=== PATIENT | female | born 1955 | race Caucasian/White ===

== ENCOUNTER → 2017-11-23 11:46 | Outpatient (CLI) | payer OTHER, SELFPAY ==
[2017-11-23 13:05] LABS: T4 Total Thyroxine 7.56 ug/dL (5.5-11.0)
[2017-11-23 13:19] LABS: Thyroid Stimulating Hormone 1.18 uIU/mL (0.47-4.68)
== END ==
PROVIDERS: Family Provider Family Medicine; PCP Family Medicine; Visit Provider Family Medicine
DX: E03.9 Hypothyroidism, unspecified (principal)
CPT/HCPCS: 36415; 84436; 84443

== ENCOUNTER → 2018-03-15 08:22 | Outpatient (CLI) | payer OTHER, SELFPAY ==
[2018-03-15 10:21] LABS: Free T4, Direct Thyroxine 1.13 ng/dL (0.78-2.19)
[2018-03-15 10:35] LABS: Thyroid Stimulating Hormone < 0.02 uIU/mL (0.47-4.68)
== END ==
PROVIDERS: PCP Family Medicine; Visit Provider Family Medicine
DX: E03.9 Hypothyroidism, unspecified (principal)
CPT/HCPCS: 36415; 84439; 84443

== ENCOUNTER → 2018-04-17 10:06 | Outpatient (CLI) | payer OTHER, SELFPAY ==
--- NOTE | 2018-04-17 | DI.MG.S_ITS ---
BILATERAL DIGITAL SCREENING MAMMOGRAM 3D/2D WITH CAD: 04/17/2018 CLINICAL: Routine screening. Personal history of left breast cancer. Comparison is made to exams dated: 04/13/2017 mammogram, 04/07/2016 mammogram, and 04/05/2015 mammogram - [facility]. The tissue of both breasts is heterogeneously dense. This may lower the sensitivity of mammography. Current study was also evaluated with a Computer Aided Detection (CAD) system. There are benign post operative findings in the left breast. No significant masses, calcifications, or other findings are seen in either breast. There has been no significant interval change. IMPRESSION: There is no mammographic evidence of malignancy. A 1 year screening mammogram is recommended. NOTE: For mammograms, a report in lay terms will be sent to the patient. Approximately 15% of breast malignancies will not be visualized mammographically. In the management of a palpable breast mass, a negative mammogram must not discourage biopsy of a clinically suspicious lesion. Electronically Signed By: Kaitlynn mitchell/simon:04/17/2018 13:28:50 copy to: Vimal Graham letter sent: Normal Exam ACR BI-RADS Category 2: Benign Finding(s) 3342F
== END ==
PROVIDERS: Family Provider Internal Medicine Hematology & Oncology; PCP Student in an Organized Health Care Education/Training Program; Visit Provider Family Medicine
DX: Z12.31 Encounter for screening mammogram for malignant neoplasm of breast (principal); Z85.3 Personal history of malignant neoplasm of breast
CPT/HCPCS: 77063; 77067

== ENCOUNTER → 2018-07-30 11:25 | Outpatient (CLI) | payer OTHER, SELFPAY ==
[2018-07-30 12:30] LABS: BUN Creatinine Ratio 22.9 (6-22); Blood Urea Nitrogen 16 mg/dL (7-17); Calcium 9.2 mg/dL (8.4-10.2); Carbon Dioxide 25 mmol/L (22-32); Chloride 104 mmol/L (98-107); Cholesterol 160 mg/dL (140-199); Estimated Glomerular Filt Rate > 60.0 mL/min (>60); Glucose 106 mg/dL (80-110); HDL Cholesterol 65 mg/dL (40-60); HEMOLYSIS < 15 (0-50); LDL Cholesterol Calculated 65 mg/dL (<100); Sodium 138 mmol/L (137-145); Triglycerides 152 mg/dL (35-150)
[2018-07-30 13:23] LABS: Free T4, Direct Thyroxine 1.63 ng/dL (0.78-2.19)
[2018-07-30 13:36] LABS: Thyroid Stimulating Hormone 0.03 uIU/mL (0.47-4.68)
[2018-07-30 15:59] LABS: Vitamin D 25 Hydroxy (D3) 26.7 ng/mL (30.0-100.0)
== END ==
PROVIDERS: PCP Student in an Organized Health Care Education/Training Program; Visit Provider Student in an Organized Health Care Education/Training Program
DX: E55.9 Vitamin D deficiency, unspecified (principal); E03.9 Hypothyroidism, unspecified; I10 Essential (primary) hypertension; Z13.220 Encounter for screening for lipoid disorders
CPT/HCPCS: 36415; 80048; 80061; 82306; 84439; 84443; 84481

== ENCOUNTER 2019-03-11 13:47 | Day surgery (SDC) | payer OTHER, SELFPAY ==
[2019-03-11] VITALS (7 sets, daily range): BP systolic 122–142; BP diastolic 69–81; PULSE 66–89; RESP 12–19; TEMP 36–36.8; O2SAT 98–99; BMI 46.1
[2019-03-11] MEDS: SODIUM CHLORIDE 0.9% 1,000 ML 200 ML IV (14:25)
--- NOTE | 2019-03-11 15:03 | PM.HP.1 ---
History of Present Illness History of Present Illness Date Patient Seen: 03/11/19 Time Patient Seen: 15:03 Chief complaint: 36002 Colonoscopy Narrative: This is a 63-year-old woman with history of morbid obesity, hypothyroid, hypertension, and a normal screening colonoscopy 12 years ago. She is here for 10 year repeat screening colonoscopy. She denies any melena or hematochezia, or other concerning symptoms. She says she has been in her normal state of health since her last visit with her primary doctor Dr. Moon. ROS: 10 system review was negative other than as mentioned in the HPI and below. PE: GENERAL: Well groomed and cooperative. Obese. Appears stated age. Answers questions promptly and appropriately. Vital signs noted. HENT: Normocephalic, atraumatic. Hearing intact. Oral mucosa is pink and moist. EYES: Conjunctiva pink, sclera white, no periorbital swelling. CARDIOVASCULAR: Regular rate. No pedal edema. RESPIRATORY: Normal respiratory rate, breathing comfortably on room air. GASTROINTESTINAL: Abdomen soft and non-distended GENITALURINARY: No flank tenderness. MUSCULOSKELETAL: Equal tone and mass bilaterally. SKIN: Warm, dry, soft, appropriate color for ethnicity. No other lesions, rashes, or wounds. NEURO: Alert and Oriented X 3. Good coordination. No gross sensory deficits, or cognitive issues. PSYCH: Appropriate affect and mood. Patient History Medical History Acquired hypothyroidism (Chronic 05/23/16) Allergic rhinitis (Chronic 1997) Eason's esophagus (Chronic Unknown) Breast cancer (Resolved 2012) Chickenpox (Resolved) Chronic back pain (Chronic ~1983) Chronic pain of left knee (Chronic 06/19/16) Cubital tunnel syndrome (Resolved 1994) Cysts (Resolved 2010) Essential hypertension (Chronic 05/23/16) Fibroids (Resolved 1974) Foot pain (Resolved 2011) History of heavy periods (Resolved 1991) Hx of fracture of foot (Resolved 11/2016) Hypertension (Chronic Unknown) Hypothyroidism (Chronic 1988) Knee pain (Chronic 2011) Loss of hair (Suspected 08/02/17) Malignant neoplasm of female breast (Resolved 05/23/16) Measles (Resolved) Mumps (Resolved) Obesity due to excess calories without serious comorbidity (Chronic 06/29/17) Right ankle pain (Chronic) Right calcaneal fracture (Resolved) Rosacea (Chronic ~1988) Skin cancer (Resolved ~1999) Urinary incontinence (Chronic 1995) Surgical History History of bladder suspension procedure Hx of lumpectomy (Resolved 02/2013) S/P cubital tunnel release (Resolved 2012) Family History Brother Age: 65 Heart disease Father Age: 87 Cancer Diabetes mellitus Mother Age: 85 Diabetes mellitus Social History marital status: household members: spouse lives independently: Yes housing: house Smoking Status: Never smoker alcohol intake: current substance use type: does not use Family & Social History Family History Brother Age: 65 Heart disease Father Age: 87 Cancer Diabetes mellitus Mother Age: 85 Diabetes mellitus Social History: household members spouse lives independently Yes Tobacco & Substance use: Smoking Status Never smoker alcohol intake current Meds Home Medications and Allergies Home Medications Medication Instructions Recorded Confirmed Type multivitamin [Multiple Vitamins] 1 tab PO QDAY #0 11/29/16 03/11/19 History vitamin B complex [B 1 tab PO QDAY #0 11/29/16 03/11/19 History Complex-Vitamin B12] losartan 50 mg tablet 50 mg PO QDAY #90 tab 05/21/18 03/11/19 Rx levothyroxine 137 mcg tablet 137 mcg PO DAILY #90 tab 11/01/18 03/11/19 Rx Allergies Allergy/AdvReac Type Severity Reaction Status Date / Time azithromycin [AZITHROMYCIN] Allergy Unknown Verified 03/11/19 14:09 Exam Vital Signs (past 8 hours): - 03/11/19 14:16 Temperature 97.3 F L Pulse Rate 89 Respiratory Rate 12 Blood Pressure 130/81 Pulse Oximetry 98 Oxygen Delivery Method Room Air Assessment & Plan Assessment and plan (1) Colon cancer screening: Current visit: Yes Status: Acute Assessment & Plan narrative: 63-year-old woman at average risk for colon cancer here for 10 year screening colonoscopy. Risks and benefits of the procedure were discussed with the patient including risk of bleeding and perforation, and need for surgical intervention. The patient desires to proceed with colonoscopy, possible polypectomy possible biopsy. Proceed with colonoscopy procedure Time Spent With Patient Time with patient: 15-24 minutes Quality VTE Deep Vein Thrombosis/Pulmonary Embolism Present on Admission: No
--- NOTE | 2019-03-11 15:39 | PM.OP.ENDO ---
Operative Date/Time/Diagnoses Date of procedure: 03/11/19 Time of procedure: 15:39 Pre-op diagnosis: Average risk for colon cancer Post-op diagnosis: same Procedure & Clinicians Study performed: Screening colonoscopy Same procedure as scheduled: Yes Indications: Ten years since last screening colonosocpy Surgeon: Delia Arauz Procedure Notes SCOAP/Timeout: Performed Procedure in detail: Patient brought to the room and placed in left lateral decubitus position with all bony prominences padded. A time-out was performed and then the patient has been under sedation starting with 4 mg of Versed and 100 mg of fentanyl. Vitals were monitored throughout the procedure and remained stable. Once adequately sedated the procedure was begun a rectal exam was performed revealing no abnormalities. The colonoscope was then introduced to the rectum and advanced to the cecum in the usual fashion. The cecum was identified with the appendiceal orifice and the ileocecal valve. The scope was then retracted in the usual fashion rotating side to side and examining each mucosal fold fold. No abnormalities were found. At the conclusion procedure retroflexion was performed and a small grade 1-2 internal hemorrhoids without stigmata of bleeding were seen. Following that the scope was withdrawn from the rectum the procedure was concluded the patient tolerated the procedure well was transferred to the PACU in stable condition. Scope withdrawal time: 8 minutes Sedation minutes: 29 Findings: internal hemorrhoids Specimen(s): none sent Complications: none Impression: Normal colon, grade 1-2 internal hemorrhoids Post-procedure Recommendations: Colonscopy in 10 years Follow up: as needed Disposition: PACU
[2019-03-11] MEDS: MIDAZOLAM 5 MG/5 ML VIAL IV (15:43)
[2019-03-11] MEDS: fentaNYL 250 MCG/5 ML INJ IV (15:43)
== END 2019-03-11 16:30 | disposition home or self-care (01) ==
PROVIDERS: Family Provider Student in an Organized Health Care Education/Training Program; PCP Student in an Organized Health Care Education/Training Program; Visit Provider Surgery
PROC: 0DJD8ZZ Inspection of Lower Intestinal Tract, Via Natural or Artificial Opening Endoscopic (ICD-10-PCS; CPT 45378; principal; 2019-03-11 15:00)
DX: Z12.11 Encounter for screening for malignant neoplasm of colon (principal); K64.1 Second degree hemorrhoids; E66.01 Morbid (severe) obesity due to excess calories; E03.9 Hypothyroidism, unspecified; I10 Essential (primary) hypertension
CPT/HCPCS: 45378; 99152; 99153; J2250; J3010

== ENCOUNTER → 2019-04-22 10:18 | Outpatient (CLI) | payer OTHER, SELFPAY ==
--- NOTE | 2019-04-22 | DI.MG.S_ITS ---
BILATERAL DIGITAL SCREENING MAMMOGRAM 3D/2D WITH CAD: 04/22/2019 CLINICAL: Routine screening. Personal history of breast cancer. Comparison is made to exams dated: 04/17/2018 mammogram, 04/13/2017 mammogram, 04/07/2016 mammogram, and 04/05/2015 mammogram - [facility]. The tissue of both breasts is heterogeneously dense. This may lower the sensitivity of mammography. Current study was also evaluated with a Computer Aided Detection (CAD) system. There are benign post operative findings in the left breast. No significant masses, calcifications, or other findings are seen in either breast. There has been no significant interval change. IMPRESSION: There is no mammographic evidence of malignancy. A 1 year screening mammogram is recommended. This exam was interpreted at Station ID: [id number]. NOTE: For mammograms, a report in lay terms will be sent to the patient. Approximately 15% of breast malignancies will not be visualized mammographically. In the management of a palpable breast mass, a negative mammogram must not discourage biopsy of a clinically suspicious lesion. Electronically Signed By: Tommy reyes/simon:04/22/2019 11:01:17 copy to: Devin Carlin letter sent: Normal Exam ACR BI-RADS Category 2: Benign Finding(s) 3342F
== END ==
PROVIDERS: PCP Student in an Organized Health Care Education/Training Program; Visit Provider Internal Medicine Hematology & Oncology
DX: Z12.31 Encounter for screening mammogram for malignant neoplasm of breast (principal); Z85.3 Personal history of malignant neoplasm of breast
CPT/HCPCS: 77063; 77067

== ENCOUNTER → 2019-05-12 09:51 | Outpatient (CLI) | payer OTHER, SELFPAY ==
[2019-05-12 11:10] LABS: Thyroid Stimulating Hormone 0.03 uIU/mL (0.47-4.68)
== END ==
PROVIDERS: PCP Student in an Organized Health Care Education/Training Program; Visit Provider Student in an Organized Health Care Education/Training Program
DX: E03.9 Hypothyroidism, unspecified (principal)
CPT/HCPCS: 36415; 84443

== ENCOUNTER → 2019-12-02 10:37 | Outpatient (CLI) | payer OTHER, SELFPAY ==
[2019-12-02 13:06] LABS: TSH w/ Reflex to FT4 0.11 uIU/mL (0.47-4.68)
[2019-12-02 13:41] LABS: Free T4, Direct Thyroxine 1.78 ng/dL (0.78-2.19)
== END ==
PROVIDERS: PCP Student in an Organized Health Care Education/Training Program; Referring Provider Student in an Organized Health Care Education/Training Program; Visit Provider Student in an Organized Health Care Education/Training Program
DX: E03.9 Hypothyroidism, unspecified (principal)
CPT/HCPCS: 36415; 84439; 84443

== ENCOUNTER → 2020-09-15 10:01 | Outpatient (CLI) | payer OTHER, SELFPAY ==
--- NOTE | 2020-09-15 10:03 | DI.MG.S_ITS ---
BILATERAL DIGITAL SCREENING MAMMOGRAM 3D/2D WITH CAD POST LUMPECTOMY: 09/15/2020 CLINICAL: Routine screening. Personal history of left breast cancer. Comparison is made to exams dated: 04/22/2019 mammogram, 04/17/2018 mammogram, and 04/13/2017 mammogram - [facility]. The tissue of both breasts is heterogeneously dense. This may lower the sensitivity of mammography. Current study was also evaluated with a Computer Aided Detection (CAD) system. There are benign post operative findings in the left breast. No significant masses, calcifications, or other findings are seen in either breast. There has been no significant interval change. IMPRESSION: BENIGN There is no mammographic evidence of malignancy. A 1 year screening mammogram is recommended. This exam was interpreted at Station ID: [id number]. NOTE: For mammograms, a report in lay terms will be sent to the patient. Approximately 15% of breast malignancies will not be visualized mammographically. In the management of a palpable breast mass, a negative mammogram must not discourage biopsy of a clinically suspicious lesion. Electronically Signed By: Stephanie davis/simon:09/15/2020 15:41:50 copy to: Devin Carlin letter sent: Normal Exam ACR BI-RADS Category 2: Benign Finding(s) 3342F
--- NOTE | 2020-09-15 10:03 | DI.RAD.S_ITS ---
PROCEDURE: XR KNEE LT 3V INDICATIONS: Knee pain TECHNIQUE: 3 views of the knee were acquired. COMPARISON: None. FINDINGS: Bones: No fractures or dislocations. No suspicious bony lesions. Moderate patellofemoral medial compartment osteoarthritis. Mild lateral compartment osteoarthritis. Soft tissues: No joint effusion. No suspicious soft tissue calcifications. IMPRESSION: Tricompartmental osteoarthritis. Dictated by: Clemencia Pena MD, PhD on 09/15/2020 at 17:08 Approved by: Clemencia Pena MD, PhD on 09/15/2020 at 17:09
== END ==
PROVIDERS: PCP Student in an Organized Health Care Education/Training Program; Referring Provider Student in an Organized Health Care Education/Training Program; Visit Provider Student in an Organized Health Care Education/Training Program
DX: M25.562 Pain in left knee (principal); G89.29 Other chronic pain; Z12.31 Encounter for screening mammogram for malignant neoplasm of breast; Z85.3 Personal history of malignant neoplasm of breast; M17.12 Unilateral primary osteoarthritis, left knee
CPT/HCPCS: 73562; 77063; 77067

== ENCOUNTER → 2021-11-09 10:50 | Outpatient (CLI) | payer MEDICARE, SELFPAY ==
--- NOTE | 2021-11-09 | DI.MG.S_ITS ---
BILATERAL DIGITAL SCREENING MAMMOGRAM 3D/2D WITH CAD: 11/09/2021 CLINICAL: Routine screening. Personal history of left breast cancer. Comparison is made to exams dated: 09/15/2020 mammogram, 04/22/2019 mammogram, and 04/17/2018 mammogram - [facility]. The tissue of both breasts is heterogeneously dense. This may lower the sensitivity of mammography. Current study was also evaluated with a Computer Aided Detection (CAD) system. There are benign post operative findings in the left breast. No significant masses, calcifications, or other findings are seen in either breast. There has been no significant interval change. IMPRESSION: BENIGN There is no mammographic evidence of malignancy. A 1 year screening mammogram is recommended. This exam was interpreted at Station ID: [id number]. NOTE: For mammograms, a report in lay terms will be sent to the patient. Approximately 15% of breast malignancies will not be visualized mammographically. In the management of a palpable breast mass, a negative mammogram must not discourage biopsy of a clinically suspicious lesion. Electronically Signed By: Kaitlynn mitchell/simon:11/09/2021 14:52:08 copy to: Devin Carlin letter sent: Normal Exam ACR BI-RADS Category 2: Benign Finding(s) 3342F
== END ==
PROVIDERS: PCP Student in an Organized Health Care Education/Training Program; Referring Provider Student in an Organized Health Care Education/Training Program; Visit Provider Student in an Organized Health Care Education/Training Program
DX: Z12.31 Encounter for screening mammogram for malignant neoplasm of breast (principal); Z85.3 Personal history of malignant neoplasm of breast
CPT/HCPCS: 77063; 77067

== ENCOUNTER → 2022-01-31 15:28 | Outpatient (CLI) | payer MEDICARE, SELFPAY ==
[2022-01-31 17:06] LABS: BUN Creatinine Ratio 16.5 (6-22); Blood Urea Nitrogen 17 mg/dL (7-17); Carbon Dioxide 27 mmol/L (22-32); Chloride 103 mmol/L (98-107); Estimated Glomerular Filt Rate > 60 mL/min (>60); Glucose 125 mg/dL (80-110); HEMOLYSIS < 15 (0-50); Potassium 4.1 mmol/L (3.4-5.1); Sodium 137 mmol/L (137-145)
[2022-01-31 17:34] LABS: TSH w/ Reflex to FT4 0.97 uIU/mL (0.47-4.68)
[2022-01-31 17:58] LABS: Vitamin B12 370 pg/mL (239-931)
== END ==
PROVIDERS: PCP Student in an Organized Health Care Education/Training Program; Referring Provider Student in an Organized Health Care Education/Training Program; Visit Provider Student in an Organized Health Care Education/Training Program
DX: I10 Essential (primary) hypertension (principal); D51.9 Vitamin B12 deficiency anemia, unspecified; E03.9 Hypothyroidism, unspecified
CPT/HCPCS: 36415; 80048; 82607; 84443

== ENCOUNTER → 2022-02-17 10:06 | Outpatient (CLI) | payer MEDICARE, SELFPAY | PROVIDERS: PCP Student in an Organized Health Care Education/Training Program; Referring Provider Student in an Organized Health Care Education/Training Program; Visit Provider Student in an Organized Health Care Education/Training Program | DX: Z78.0 Asymptomatic menopausal state (principal); M85.851 Other specified disorders of bone density and structure, right thigh | CPT/HCPCS: 77080 ==

== ENCOUNTER → 2022-06-23 09:42 | Outpatient (CLI) | payer OTHER, SELFPAY ==
[2022-06-23 11:10] LABS: HEMOLYSIS < 15 (0-50); Iron 84 ug/dL (37-170)
[2022-06-23 11:23] LABS: Percent Iron Saturation 24 % (15-50); Total Iron Binding Capacity 353 ug/dL (265-497); Transferrin 280 mg/dL (206-381)
[2022-06-23 11:26] LABS: Free T3, Triiodothyronine Free 3.32 pg/mL (2.77-5.27); Free T4, Direct Thyroxine 1.58 ng/dL (0.78-2.19)
[2022-06-23 11:39] LABS: Thyroid Stimulating Hormone 1.19 uIU/mL (0.47-4.68)
[2022-06-29 08:37] LABS: Testosterone % Fr + Wkly bound 10.9 % (3.0-18.0); Testosterone Fr+Wkly bound 1.5 ng/dL (0.0-9.5); Testosterone, Total 13.8 ng/dL (7.0-40.0)
== END ==
PROVIDERS: PCP Student in an Organized Health Care Education/Training Program; Referring Provider Internal Medicine Endocrinology, Diabetes & Metabolism; Visit Provider Internal Medicine Endocrinology, Diabetes & Metabolism
DX: L65.9 Nonscarring hair loss, unspecified (principal); E03.9 Hypothyroidism, unspecified
CPT/HCPCS: 36415; 82642; 83540; 83550; 84403; 84439; 84443; 84481

== ENCOUNTER 2022-07-25 08:04 | Emergency (ER) | payer OTHER, SELFPAY ==
[2022-07-25 08:20] VITALS: BP 216/98; PULSE 66; RESP 18; TEMP 36.2; O2SAT 99; BMI 47.5
--- NOTE | 2022-07-25 08:35 | ED.GENADULT ---
HPI - General Adult General Chief complaint: Back Pain/Injury Stated complaint: sent by [facility] back pain/rash T-3 Time Seen by Provider: 07/25/22 08:21 Source: patient Mode of arrival: Ambulatory History of Present Illness HPI narrative: 67-year-old female nonsmoker with history of hypertension, hypothyroid and prior breast cancer presents to us from the walk-in clinic with a chief complaint of a right posterior back pain in the absence of injury. She states that at times it is a severe pain and she is unable to obviously make better or worse most of the time but sometimes it seems to get worse when she moves. She states that there was a rash present earlier in the day and then as the day progressed she started having increasing pain. She denies systemic symptoms such as dizziness, weakness or lightheadedness. She is had no fever, chills nor nausea or vomiting. She frequently has urinary frequency but states it is no worse than normal and denies any dysuria, urgency or hematuria. Related Data Home Medications Medication Instructions Recorded Confirmed multivitamin (Multiple Vitamins 1 tab PO QDAY ##0 11/29/16 07/25/22 tablet) minocycline 50 mg capsule 50 mg PO DAILY 01/31/22 07/25/22 Previous Rx's Medication Instructions Recorded levothyroxine 125 mcg tablet 125 mcg PO DAILY #90 tabs 03/14/22 losartan 50 mg tablet 50 mg PO DAILY #90 tabs 03/14/22 cyclobenzaprine 10 mg tablet 10 mg PO TID PRN muscle spasm #14 07/25/22 tabs hydrocodone 5 mg-acetaminophen 325 1 tab PO Q4-6H PRN pain #10 tabs 07/25/22 mg tablet ketorolac 10 mg tablet 10 mg PO Q6H PRN pain #14 tabs 07/25/22 Allergies Allergy/AdvReac Type Severity Reaction Status Date / Time azithromycin [AZITHROMYCIN] Allergy Unknown Verified 07/25/22 07:44 ivermectin [From Aveidaoxia] AdvReac Mild heart Verified 07/25/22 07:44 racing w/ palpitations, neck pain, GI upset metronidazole AdvReac Mild heart Verified 07/25/22 07:44 [From Aveidaoxia] racing w/ palpitations, neck pain, GI upset niacinamide [From Aveidaoxia] AdvReac Mild heart Verified 07/25/22 07:44 racing w/ palpitations, neck pain, GI upset Review of Systems Review of Systems Narrative: GENERAL: Denies chills, fatigue, malaise, fever, sweats. HEENT: Denies sinus pain, ear pain, sore throat, difficulty swallowing, dizziness. RESPIRATORY: Denies dyspnea, cough, wheezing, hemoptysis, sputum. CARDIOVASCULAR: Denies chest pain, palpitations, orthopnea, edema, GASTROINTESTINAL: Denies nausea, vomiting, abdominal pain, diarrhea, constipation, melena. : See HPI MUSCULOSKELETAL: See HPI SKIN: Denies rash, skin lesions, or other NEUROLOGIC: Denies weakness, headache, numbness, change in speech, confusion, seizures, incoordination. PSYCHIATRIC: No concerning psychosocial issues. 12 point review of systems is negative except for those stated above Patient History Medical History Acquired hypothyroidism (05/23/16) Allergic rhinitis (1997) Eason's esophagus (Unknown) Breast cancer (2012) Chickenpox Chronic back pain (~1983) Chronic pain of left knee (06/19/16) Cubital tunnel syndrome (1994) Cysts (2010) Dermoid cyst of right upper extremity Essential hypertension (05/23/16) Fibroids (1974) Foot pain (2011) History of heavy periods (1991) Hx of fracture of foot (11/2016) Hypertension (Unknown) Knee pain (2011) Malignant neoplasm of female breast (05/23/16) Measles Mumps Right calcaneal fracture Rosacea (~1988) Skin cancer (~1999) Urinary incontinence (1995) Surgical History History of bladder suspension procedure Hx of lumpectomy (02/2013) S/P cubital tunnel release (2012) Family History Brother Age: 69 Heart disease Father Age: 91 Cancer Diabetes mellitus Mother Age: 89 Diabetes mellitus Social History marital status: household members: spouse lives independently: Yes housing: house Smoking Status: Never smoker alcohol intake: current substance use type: does not use Smoking Status: Never smoker alcohol intake frequency: 0-2 drinks per day Alcohol type: wine Substance Use Type: does not use Exam Narrative Exam Narrative: GENERAL: [67] year old patient appears stated age. Well-developed patient, in mild distress. HEAD: Atraumatic. Normocephalic. EYES: Pupils equal round and reactive. Extraocular motions intact. No scleral icterus. No injection or drainage. ENT: Nose without bleeding, purulent drainage. Throat without erythema, tonsillar hypertrophy or exudate. Airway patent. NECK: Trachea midline. Non tender CARDIOVASCULAR: Regular rate and rhythm without murmurs, gallops, or rubs. RESPIRATORY: Clear to auscultation. Breath sounds equal bilaterally. No wheezes, rales, or rhonchi. GASTROINTESTINAL: Abdomen soft, non-tender, nondistended. EXTREMITIES: No edema or joint tenderness. BACK: No swelling, redness, edema or fluctuance. Minimally reproducible pain along right lateral rib, there is an area with bruising where she states that she was pressing firmly trying to reduce the pain and this seems to be where I am able to reproduce the pain. There is no reproducible pain in her abdomen NEURO: AOx3. SKIN: No rash or erythema of visible areas Initial Vital Signs Initial Vital Signs: Vital Signs Temperature 97.1 F L 07/25/22 08:20 Pulse Rate 66 07/25/22 08:20 Respiratory Rate 18 07/25/22 08:20 Blood Pressure 216/98 H 07/25/22 08:20 Pulse Oximetry 99 07/25/22 08:20 Oxygen Delivery Method 07/25/22 08:20 Course Orders Ordered: Discontinued Medications Sodium Chloride (Normal Saline 0.9%) 500 mls @ 1,000 mls/hr IV BOLUS ONE Stop: 07/25/22 08:50 Last Infusion: 07/25/22 09:39 Dose: 0 mls/hr Documented By: Admin: 07/25/22 08:46 Dose: 1,000 mls/hr Documented By: MAICO Ketorolac Tromethamine (Ketorolac 30 Mg/Ml Vial) 15 mg IV NOW ONE Stop: 07/25/22 08:22 Last Admin: 07/25/22 08:45 Dose: 15 mg Documented By: MAICO Vital Signs Vital signs: Vital Signs - 8 hr 07/25/22 08:20 Temperature 97.1 F L Pulse Rate 66 Respiratory Rate 18 Blood Pressure 216/98 H Pulse Oximetry 99 Oxygen Delivery Method Room Air Medical Decision Making Lab Data 07/25/22 08:33 07/25/22 08:33 Labs: Lab Results 07/25/22 07/25/22 Range/Units 08:33 08:33 WBC 6.5 (4.5-11.0) X10^3/uL RBC 4.76 (4.0-5.2) X10^6/uL Hgb 13.6 (12.0-16.0) g/dL Hct 40.6 (36-46) % MCV 85.2 (80-100) fL MCH 28.6 (26-34) PG MCHC 33.6 (30-36) % RDW 13.0 (11.6-14.8) % Plt Count 324 (150-400) X10^3/uL Neut % (Auto) 70.7 (50-75) % Lymph % (Auto) 20.8 L (25-40) % [place] % (Auto) 6.5 (3-14) % Eos % (Auto) 1.5 L (2-4) % Baso % (Auto) 0.5 (0-2) % Neut # (Auto) 4600 (8583-2253) /uL Lymph # (Auto) 1400 (8683-6927) /uL [place] # (Auto) 400 (0-900) /uL Eos # (Auto) 100 (0-450) /uL Baso # (Auto) 0 (0-100) /uL Sodium 136 L (137-145) mmol/L Potassium 4.2 (3.4-5.1) mmol/L Chloride 101 (98-107) mmol/L Carbon Dioxide 28 (22-32) mmol/L BUN 12 (7-17) mg/dL Creatinine 0.63 (0.52-1.04) mg/dL Estimated GFR > 60 (>60) mL/min BUN/Creatinine Ratio 19.0 (6-22) Glucose 153 H (80-110) mg/dL Calcium 9.2 (8.4-10.2) mg/dL Total Bilirubin 0.6 (0.2-1.3) mg/dL AST 28 (14-36) IU/L ALT 36 H (<35) IU/L Alkaline Phosphatase 91 (38-126) U/L Total Protein 8.2 (6.3-8.2) g/dL Albumin 4.4 (3.5-5.0) g/dL Globulin 3.8 (1.7-4.1) g/dL Albumin/Globulin Ratio 1.2 (1.0-2.8) Urine Dip Bedside Urine Glucose Negative Bedside Urine Bilirubin - Negative Bedside Urine Ketone - Negative Urine Specific [place] 1.010 Bedside Urine Occult Blood - Negative Bedside Urine pH 6.0 Bedside Urine Protein - Negative Bedside Urine Urobilinogen - Negative Bedside Urine Nitrite - Negative Bedside Urine Leukocytes - Negative Esterase Point of care testing: Urine Dip Bedside Urine Glucose Negative Bedside Urine Bilirubin - Negative Bedside Urine Ketone - Negative Urine Specific [place] 1.010 Bedside Urine Occult Blood - Negative Bedside Urine pH 6.0 Bedside Urine Protein - Negative Bedside Urine Urobilinogen - Negative Bedside Urine Nitrite - Negative Bedside Urine Leukocytes - Negative Esterase MDM Narrative Medical decision making narrative: CC: 67-year-old female with hypertension former breast cancer presents with right flank pain in the absence of injury Complicating co-morbidities: Age, hypertension, hypothyroid Data collected from: Patient Medical records reviewed: Prior charts reviewed Differential considered, but not limited to: Musculoskeletal, pyelonephritis, hydronephrosis, kidney stone, shingles versus other Exam documented above, pertinent findings include: Minimally reproducible pain, no obvious rash suggestive of shingles Lab Test results independently reviewed as above. Pertinent findings: Independently reviewed EKG as above Imaging studies independently reviewed: No kidney stone or hydronephrosis, there is diffuse sclerotic change of T11 vertebral body concerning for metastatic disease Treatments: toradol Re-evaluations: Patient does have improved symptoms after above Discussion: Patient presents with nontraumatic been back pain that radiates around her flank a bit. Even prior to arrival today she states that her symptoms had been improving. Urine demonstrates no sign of infection, evidence kidney stone. Abdomen soft and nontender. There was question about the potential of shingles, no classic rash, symptoms before rash presented, highly unlikely. Imaging did note abnormal findings and T11 vertebral body, this could certainly be the source of her symptoms, patient encouraged to follow closely with primary care to pursue further diagnostics Disposition: see below, along with detailed discharge instructions that have been reviewed with patient as well as indications for ED re-evaluation and additional outpatient follow up Discharge Plan Departure Patient Disposition: Home Clinical Impression: Back pain Instructions: DI for Thoracic Back Pain Activity Restrictions/Additional Instructions: *You have been diagnosed with [thoracic back pain. As we discussed there is no sign of urine infection, kidney stone or shingles. CT scan does demonstrates some changes involving your T11 vertebral body that will need to be evaluated by your primary care provider *What to do: *Please continue to take your regular medications as directed. [x ] New medication prescriptions sent to your pharmacy: [[facility] ] [ ] New medication written as a paper prescription [ ] No new medications given *Please follow up with your primary care provider in 2-3 days, call for an appointment. Let them know you were seen in the Emergency Department and that we ask that you be seen in follow up. We will electronically transmit a record of today's note if your PCP is in our system *Return to Emergency Department if you should have any new, worsening or concerning symptoms, such as [fever greater than 101 F, shaking chills, worsening pain, persistent vomiting or other bothersome symptoms] You have been prescribed a short course of narcotic medications. These are potentially dangerous and addictive medications that should be used carefully. While on these medications you cannot drive or operate heavy machinery. Additionally, you cannot sign legal documents or perform any duties such as this. Many people get constipated on narcotic medications so it would be advisable to discuss stool softeners with the pharmacist when you hand picker your prescription. Please understand that we cannot provide further refills of narcotics or controlled substances through the ED and your pain management will need to be through your Primary Care Provider Prescriptions: New cyclobenzaprine 10 mg tablet 10 mg PO TID PRN (Reason: muscle spasm) Qty: 14 0RF hydrocodone-acetaminophen 5-325 mg tablet 1 tab PO Q4-6H PRN (Reason: pain) Qty: 10 0RF ketorolac 10 mg tablet 10 mg PO Q6H PRN (Reason: pain) Qty: 14 0RF No Action multivitamin [Multiple Vitamins] 1 EACH tablet 1 tab PO QDAY Qty: 0 levothyroxine 125 mcg tablet 125 mcg PO DAILY Qty: 90 1RF losartan 50 mg tablet 50 mg PO DAILY Qty: 90 1RF minocycline 50 mg capsule 50 mg PO DAILY Referrals: Devin Wellington MD [Primary Care Provider] - Stand Alone Forms: Patient Portal/API
[2022-07-25 08:42] LABS: Add Manual Diff / Slide Review NO; Basophils Absolute Auto 0 /uL (0-100); Basophils Percent Auto 0.5 % (0-2); Eosinophils Absolute Auto 100 /uL (0-450); Eosinophils Percent Auto 1.5 % (2-4); Hematocrit 40.6 % (36-46); Hemoglobin 13.6 g/dL (12.0-16.0); Lymphocytes Absolute Auto 1400 /uL (1100-4500); Lymphocytes Percent Auto 20.8 % (25-40); Mean Corpuscular HGB Conc 33.6 % (30-36); Mean Corpuscular Hemoglobin 28.6 PG (26-34); Mean Corpuscular Volume 85.2 fL (80-100); Monocytes Absolute Auto 400 /uL (0-900); Monocytes Percent Auto 6.5 % (3-14); Neutrophils Absolute Auto 4600 /uL (1500-7000); Neutrophils Percent Auto 70.7 % (50-75); Platelet Count 324 X10^3/uL (150-400); Red Blood Cell Count 4.76 X10^6/uL (4.0-5.2); White Blood Cell Count 6.5 X10^3/uL (4.5-11.0)
[2022-07-25] MEDS: KETOROLAC 30 MG/ML VIAL 15 MG IV (08:45)
[2022-07-25] MEDS: SODIUM CHLORIDE 0.9% 500 ML 1000 ML IV (08:46)
[2022-07-25 08:55] LABS: Alanine Aminotransferase 36 IU/L (<35); Albumin 4.4 g/dL (3.5-5.0); Albumin Globulin Ratio 1.2 (1.0-2.8); Alkaline Phosphatase 91 U/L (38-126); Aspartate Aminotransferase 28 IU/L (14-36); Bilirubin Total 0.6 mg/dL (0.2-1.3); Blood Urea Nitrogen 12 mg/dL (7-17); Calcium 9.2 mg/dL (8.4-10.2); Carbon Dioxide 28 mmol/L (22-32); Chloride 101 mmol/L (98-107); Estimated Glomerular Filt Rate > 60 mL/min (>60); Globulin 3.8 g/dL (1.7-4.1); Glucose 153 mg/dL (80-110); HEMOLYSIS < 15 (0-50); Potassium 4.2 mmol/L (3.4-5.1); Sodium 136 mmol/L (137-145); Total Protein 8.2 g/dL (6.3-8.2)
--- NOTE | 2022-07-25 09:04 | DI.CT.S_ITS ---
PROCEDURE: CT KIDNEY URETER BLADDER (KUB) INDICATIONS: R flank pain TECHNIQUE: Axial sections were acquired from the lung bases to the pubic symphysis. Coronal and sagittal reformats were performed. For radiation dose reduction, the following was used: automated exposure control, adjustment of mA and/or kV according to patient size. COMPARISON: None. FINDINGS: Image quality: Excellent. Lung bases: Unremarkable. Heart: No significant findings. Postsurgical changes are noted in left breast with surgical clips. URINARY: Right Kidney: No stones or hydronephrosis. Right Ureter: No hydroureter. Left Kidney: No stones or hydronephrosis. Left Ureter: No hydroureter. Bladder: Normal wall thickness. No stones. ABDOMEN: Liver: Liver is normal in size. Moderate hepatic steatosis is seen. Well-circumscribed hypodensity is noted involving inferior right hepatic lobe measures 7 millimeter in size series 2, image 28. Gallbladder: Within normal limits. Biliary ducts: Unremarkable. Pancreas: Unremarkable. Spleen: Unremarkable. Adrenal Glands: Unremarkable. Stomach and Bowel: Stomach, small bowel loops, and colon are unremarkable. Appendix is visualized and is normal in size and appearance. Mild fecal stasis throughout the colon is seen. Peritoneum: No abnormal intraperitoneal fluid. No free air. Ventral Wall: There is a small umbilical hernia containing fat only. Abdominal Nodes: No enlarged retroperitoneal or mesenteric lymph nodes. Vessels: Aorta and inferior vena cava are normal in size. Mild atherosclerotic calcifications are seen in abdominal aorta. PELVIS: Pelvic Organs: No gross abnormality is seen in uterus and bilateral ovaries.. Pelvic Nodes: Unremarkable. Miscellaneous: No inguinal hernias are seen. Bones: Sclerotic changes are noted involving T11 vertebral body. No other suspicious bony lesions. No acute vertebral body compression fracture. IMPRESSION: 1. No stones or hydronephrosis. No hydroureter. Normal appearing urinary bladder. 2. Mild constipation. No bowel obstruction or abnormal bowel wall thickening. No free fluid or free air. 3. Hepatic steatosis. Possible sub centimeter cyst in inferior right hepatic lobe as above. 4. Diffuse sclerotic changes involving T11 vertebral body concerning for metastatic disease given patient's history of breast cancer. No other suspicious bony lesion is seen. No acute vertebral body compression fracture. Dictated by: Gabo Reaves M.D. on 07/25/2022 at 9:22 Approved by: Gabo Reaves M.D. on 07/25/2022 at 9:27
[2022-07-25 10:52] VITALS: BP 228/100; PULSE 69; O2SAT 99
== END 2022-07-25 10:57 | disposition home or self-care (01) ==
PROVIDERS: Emergency Provider Emergency Medicine; PCP Student in an Organized Health Care Education/Training Program
DX: M54.6 Pain in thoracic spine (principal); I10 Essential (primary) hypertension
CPT/HCPCS: 36415; 74176; 80053; 81003; 85025; 93005; 96361; 96374; 99284; J1885

== ENCOUNTER → 2022-08-15 10:07 | Outpatient (CLI) | payer OTHER, SELFPAY ==
[2022-08-15 11:54] LABS: Blood Urea Nitrogen 18 mg/dL (7-17); Calcium 9.6 mg/dL (8.4-10.2); Carbon Dioxide 27 mmol/L (22-32); Chloride 100 mmol/L (98-107); Estimated Glomerular Filt Rate > 60 mL/min (>60); Glucose 145 mg/dL (80-110); HEMOLYSIS < 15 (0-50); Potassium 4.4 mmol/L (3.4-5.1); Sodium 138 mmol/L (137-145)
== END ==
PROVIDERS: PCP Family Medicine; Referring Provider Nurse Practitioner Family; Visit Provider Nurse Practitioner Family
DX: I10 Essential (primary) hypertension (principal)
CPT/HCPCS: 36415; 80048

== ENCOUNTER → 2022-08-25 13:41 | Outpatient (CLI) | payer OTHER, SELFPAY ==
--- NOTE | 2022-08-25 13:42 | DI.MRI.S_ITS ---
PROCEDURE: MR THORACIC SPINE WO/W CON INDICATIONS: Hx breast CA, abnormal T-spine CT TECHNIQUE: Noncontrast sagittal T1 spin echo and T2 fast spin echo, sagittal STIR, axial T1 and T2 fast spin echo through the thoracic spine. After the administration of contrast, axial and sagittal T1 spin echo with fat saturation through the thoracic spine. COMPARISON: [facility], CT, CT KIDNEY URETER BLADDER (KUB), 07/25/2022, 9:09. FINDINGS: Image quality: This examination is limited by involuntary motion artifact. Alignment and curvature: Accentuated thoracic kyphosis is seen. No focal AP alignment abnormality is seen. Marrow: Along the inferior endplate of the T5 vertebral body, there is abnormal signal seen, including increased STIR signal and enhancement. This may be related to a subacute Schmorl's node. Within the right posterior aspect of the T10 level, there is abnormal signal, with decreased T1 weighted and T2 weighted signal with increased STIR signal and increased enhancement seen, as on series 11, image 5. As previously demonstrated by CT, there is abnormal signal within the T11 vertebral body, which is decreased in signal on T1 weighted and T2 weighted imaging, with mildly increased STIR signal. Along the anterior aspect of the T12 vertebral body, there is additional abnormal signal seen, with decreased T1 weighted and T2 weighted signal, with increased STIR signal and enhancement. Apparent additional abnormal signal can be seen along the posterior superior right aspect of the C7 vertebral body, as on series 11, image 6. Within the right posterior 5th rib on series 12, image 16, there is increased enhancement seen. Spinal cord: Visualized spinal cord is of normal signal and size, without abnormal enhancement. Paraspinous soft tissues: No paravertebral masses or abnormal enhancement. Miscellaneous: Central canal and foramina appear widely patent at all scanned levels. IMPRESSION: Several foci of metastatic disease can be seen, which are worst involving the lower thoracic spine. Apparent additional metastatic disease seen within the posterior medial right 5th rib. Dictated by: Maurice Muñiz M.D. on 08/25/2022 at 13:50 Approved by: Maurice Muñiz M.D. on 08/25/2022 at 13:56
== END ==
PROVIDERS: PCP Family Medicine; Referring Provider Nurse Practitioner Family; Visit Provider Nurse Practitioner Family
DX: R93.89 Abnormal findings on diagnostic imaging of other specified body structures (principal); Z85.3 Personal history of malignant neoplasm of breast; C79.51 Secondary malignant neoplasm of bone
CPT/HCPCS: 72157; A9579

== ENCOUNTER → 2022-09-08 16:39 | Outpatient (CLI) | payer OTHER, SELFPAY ==
--- NOTE | 2022-09-08 16:40 | DI.MRI.S_ITS ---
PROCEDURE: MR HEAD/BRAIN WO/W CON INDICATIONS: metastatic breast cancer TECHNIQUE: Noncontrast axial T1 spin echo, axial T2 fast spin echo, sagittal and axial FLAIR, coronal T2 fast spin echo, axial gradient echo, axial diffusion and ADC through the brain. After the administration of contrast, axial and coronal and sagittal T1 spin echo with fat saturation through the brain. COMPARISON: None. FINDINGS: Image quality: Excellent. CSF spaces: Basal cisterns are patent. No extra-axial fluid collections. Ventricles are normal in size and shape. Brain: No midline shift. No intracranial bleeds or masses. No abnormal intracranial enhancement. There is cerebral volume loss for age. There is periventricular white matter chronic small vessel ischemic change. The brainstem appears normal. Diffusion-weighted images demonstrate no acute ischemic insults. No chronic ischemic insults. Normal intravascular flow voids are present. Skull and face: Calvarial marrow is normal in signal. Orbits appear normal. Sinuses: Sinuses and mastoids appear clear. IMPRESSION: No masses or abnormal enhancement can be seen. Dictated by: Maurice Muñiz M.D. on 09/08/2022 at 16:43 Approved by: Maurice Muñiz M.D. on 09/08/2022 at 16:44
== END ==
PROVIDERS: PCP Family Medicine; Referring Provider Internal Medicine Hematology & Oncology; Visit Provider Internal Medicine Hematology & Oncology
DX: C79.51 Secondary malignant neoplasm of bone; Z85.3 Personal history of malignant neoplasm of breast
CPT/HCPCS: 70553; A9579

== ENCOUNTER → 2022-09-16 10:38 | Outpatient (CLI) | payer OTHER, SELFPAY ==
--- NOTE | 2022-09-16 10:39 | DI.MRI.S_ITS ---
PROCEDURE: MR PELIS WO/W CON INDICATIONS: metastatic cancer to vertebral body and pelvis TECHNIQUE: Noncontrast coronal T1 spin echo and STIR, sagittal T1 spin echo with fat saturation and STIR, axial T1 spin echo and T2 fast spin echo with fat saturation. After the administration of contrast, axial/sagittal/coronal T1 spin echo with fat saturation through the pelvis . COMPARISON: None. FINDINGS: Image quality: Excellent. Bones: There are multiple T2 intermediate, T1 isointense to hypointense lesions within the pelvis and femurs, most consistent with metastatic disease. No soft tissue component. No pathologic fracture. Examples include: -1.3 centimeter mass in the left posterior iliac bone (series 7, image 16). -1.8 centimeter mass in the left posterior acetabulum (/). -1.7 centimeters in the right lesser trochanter Soft tissues: There are a few uterine fibroids, with smooth margins. Normal size of the ovaries. No pelvic adenopathy. The scanned muscles demonstrate normal overall bulk and internal signal. Subcutaneous tissues appear normal as well. No abnormal soft tissue enhancement. IMPRESSION: Multiple enhancing bony lesions throughout the pelvis and femurs, consistent with metastatic disease. No pathologic fracture or measurable soft tissue component. Dictated by: Daljit Yadav M.D. on 09/18/2022 at 8:17 Approved by: Daljit Yadav M.D. on 09/18/2022 at 8:23
== END ==
PROVIDERS: PCP Family Medicine; Referring Provider Internal Medicine Hematology & Oncology; Visit Provider Internal Medicine Hematology & Oncology
DX: C79.51 Secondary malignant neoplasm of bone (principal); Z85.3 Personal history of malignant neoplasm of breast; D25.9 Leiomyoma of uterus, unspecified
CPT/HCPCS: 72197; A9579

== ENCOUNTER → 2022-10-20 09:53 | Outpatient (CLI) | payer OTHER, SELFPAY | PROVIDERS: PCP Family Medicine; Referring Provider Internal Medicine Hematology & Oncology; Visit Provider Internal Medicine Hematology & Oncology | DX: I42.7 Cardiomyopathy due to drug and external agent (principal) | CPT/HCPCS: 93005 ==

== ENCOUNTER → 2022-11-20 08:47 | Outpatient (CLI) | payer OTHER, SELFPAY | PROVIDERS: PCP Family Medicine; Referring Provider Internal Medicine Hematology & Oncology; Visit Provider Internal Medicine Hematology & Oncology | DX: I42.7 Cardiomyopathy due to drug and external agent (principal); C50.919 Malignant neoplasm of unspecified site of unspecified female breast | CPT/HCPCS: 93005 ==

== ENCOUNTER → 2022-12-27 10:14 | Outpatient (CLI) | payer OTHER, SELFPAY | PROVIDERS: PCP Family Medicine; Referring Provider Internal Medicine Hematology & Oncology; Visit Provider Internal Medicine Hematology & Oncology | DX: I42.7 Cardiomyopathy due to drug and external agent (principal) | CPT/HCPCS: 93005 ==

== ENCOUNTER → 2023-01-04 07:01 | Outpatient (CLI) | payer OTHER, SELFPAY ==
[2023-01-04 07:34] LABS: Add Manual Diff / Slide Review NO; Basophils Absolute Auto 0 /uL (0-100); Basophils Percent Auto 0.9 % (0-2); Eosinophils Absolute Auto 100 /uL (0-450); Eosinophils Percent Auto 1.4 % (2-4); Hematocrit 36.7 % (36-46); Hemoglobin 12.9 g/dL (12.0-16.0); Lymphocytes Absolute Auto 1200 /uL (1100-4500); Lymphocytes Percent Auto 26.2 % (25-40); Mean Corpuscular HGB Conc 35.1 % (30-36); Mean Corpuscular Hemoglobin 31.5 PG (26-34); Mean Corpuscular Volume 89.7 fL (80-100); Monocytes Absolute Auto 400 /uL (0-900); Monocytes Percent Auto 8.1 % (3-14); Neutrophils Absolute Auto 2900 /uL (1500-7000); Neutrophils Percent Auto 63.4 % (50-75); Platelet Count 293 X10^3/uL (150-400); Red Blood Cell Count 4.09 X10^6/uL (4.0-5.2); White Blood Cell Count 4.5 X10^3/uL (4.5-11.0)
[2023-01-04 08:03] LABS: Alanine Aminotransferase 30 IU/L (<35); Albumin Globulin Ratio 1.3 (1.0-2.8); Alkaline Phosphatase 94 U/L (38-126); Aspartate Aminotransferase 24 IU/L (14-36); BUN Creatinine Ratio 16.3 (6-22); Bilirubin Total 0.6 mg/dL (0.2-1.3); Blood Urea Nitrogen 14 mg/dL (7-17); Carbon Dioxide 26 mmol/L (22-32); Chloride 102 mmol/L (98-107); Cholesterol 192 mg/dL (140-199); Estimated Glomerular Filt Rate > 60 mL/min (>60); Globulin 3.2 g/dL (1.7-4.1); Glucose 186 mg/dL (80-110); HDL Cholesterol 59 mg/dL (40-60); HEMOLYSIS < 15 (0-50); LDL Cholesterol Calculated 108 mg/dL (<100); Potassium 4.5 mmol/L (3.4-5.1); Sodium 135 mmol/L (137-145); Total Protein 7.2 g/dL (6.3-8.2); Triglycerides 127 mg/dL (35-150)
[2023-01-04 08:16] LABS: Free T4, Direct Thyroxine 1.54 ng/dL (0.78-2.19)
[2023-01-04 08:30] LABS: Thyroid Stimulating Hormone 1.67 uIU/mL (0.47-4.68)
[2023-01-05 03:42] LABS: Labcorp Hemoglobin (Hb) A1c 6.9 % (4.8-5.6)
== END ==
PROVIDERS: PCP Family Medicine; Referring Provider Family Medicine; Visit Provider Family Medicine
DX: I10 Essential (primary) hypertension (principal); E03.9 Hypothyroidism, unspecified; D48.5 Neoplasm of uncertain behavior of skin
CPT/HCPCS: 36415; 80053; 80061; 83036; 84439; 84443; 85025

== ENCOUNTER → 2023-02-06 | Outpatient (CLI) | payer OTHER, SELFPAY | PROVIDERS: PCP Family Medicine; Referring Provider Internal Medicine Hematology & Oncology; Visit Provider Internal Medicine Hematology & Oncology | DX: R00.1 Bradycardia, unspecified; C79.51 Secondary malignant neoplasm of bone; Z85.3 Personal history of malignant neoplasm of breast | CPT/HCPCS: 93005 ==

== ENCOUNTER → 2023-08-21 08:00 | Outpatient (CLI) | payer OTHER, SELFPAY ==
[2023-08-21 09:11] LABS: Hemoglobin A1C% w Est Avg Glu 6.8 % (4.0-6.0)
[2023-08-21 09:53] LABS: Free T4, Direct Thyroxine 1.49 ng/dL (0.78-2.19)
[2023-08-21 10:05] LABS: Alanine Aminotransferase 24 IU/L (<35); Albumin 4.1 g/dL (3.5-5.0); Albumin Globulin Ratio 1.2 (1.0-2.8); Alkaline Phosphatase 81 U/L (38-126); Aspartate Aminotransferase 21 IU/L (14-36); Bilirubin Total 0.8 mg/dL (0.2-1.3); Blood Urea Nitrogen 20 mg/dL (7-17); Calcium 9.6 mg/dL (8.4-10.2); Carbon Dioxide 25 mmol/L (22-32); Chloride 104 mmol/L (98-107); Estimated Glomerular Filt Rate > 60 mL/min (>60); Globulin 3.3 g/dL (1.7-4.1); Glucose 164 mg/dL (80-110); HEMOLYSIS < 15 (0-50); Potassium 4.6 mmol/L (3.4-5.1); Sodium 136 mmol/L (137-145); Total Protein 7.4 g/dL (6.3-8.2)
[2023-08-21 10:07] LABS: Thyroid Stimulating Hormone 0.842 uIU/mL (0.47-4.68)
== END ==
PROVIDERS: PCP Family Medicine; Referring Provider Family Medicine; Visit Provider Family Medicine
DX: E11.9 Type 2 diabetes mellitus without complications (principal); E03.9 Hypothyroidism, unspecified; I10 Essential (primary) hypertension
CPT/HCPCS: 36415; 80053; 83036; 84439; 84443

== ENCOUNTER → 2023-10-03 10:22 | Outpatient (CLI) | payer OTHER, SELFPAY ==
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
== END ==
PROVIDERS: PCP Family Medicine; Referring Provider Family Medicine; Visit Provider Family Medicine
DX: E11.9 Type 2 diabetes mellitus without complications (principal); Z79.85 Long-term (current) use of injectable non-insulin antidiabetic drugs; Z71.3 Dietary counseling and surveillance
CPT/HCPCS: 97802

== ENCOUNTER → 2024-01-10 09:50 | Outpatient (CLI) | payer OTHER, SELFPAY ==
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
== END ==
PROVIDERS: PCP Family Medicine; Referring Provider Family Medicine
DX: E11.9 Type 2 diabetes mellitus without complications (principal); Z71.3 Dietary counseling and surveillance; Z79.84 Long term (current) use of oral hypoglycemic drugs; Z79.85 Long-term (current) use of injectable non-insulin antidiabetic drugs
CPT/HCPCS: 97803

== ENCOUNTER → 2024-03-18 11:47 | Outpatient (CLI) | payer OTHER, SELFPAY ==
[2024-03-18 12:26] LABS: Add Manual Diff / Slide Review NO; Basophils Absolute Auto 0 /uL (0-100); Basophils Percent Auto 0.9 % (0-2); Eosinophils Absolute Auto 0 /uL (0-450); Eosinophils Percent Auto 1.2 % (2-4); Hematocrit 37.1 % (36-46); Hemoglobin 12.7 g/dL (12.0-16.0); Lymphocytes Absolute Auto 1200 /uL (1100-4500); Lymphocytes Percent Auto 31.2 % (25-40); Mean Corpuscular HGB Conc 34.2 % (30-36); Mean Corpuscular Hemoglobin 32.6 PG (26-34); Mean Corpuscular Volume 95.5 fL (80-100); Monocytes Absolute Auto 400 /uL (0-900); Monocytes Percent Auto 11.4 % (3-14); Neutrophils Absolute Auto 2200 /uL (1500-7000); Neutrophils Percent Auto 55.3 % (50-75); Platelet Count 315 X10^3/uL (150-400); Red Blood Cell Count 3.89 X10^6/uL (4.0-5.2); Red Cell Distribution Width 13.3 % (11.6-14.8); White Blood Cell Count 3.9 X10^3/uL (4.5-11.0)
[2024-03-18 12:44] LABS: Hemoglobin A1C% w Est Avg Glu 5.6 % (4.0-6.0)
[2024-03-18 12:55] LABS: HEMOLYSIS < 15 (0-50); Iron 91 ug/dL (37-170)
[2024-03-18 12:57] LABS: Alanine Aminotransferase 21 IU/L (<35); Albumin 4.6 g/dL (3.5-5.0); Albumin Globulin Ratio 1.6 (1.0-2.8); Alkaline Phosphatase 94 U/L (38-126); Aspartate Aminotransferase 24 IU/L (14-36); BUN Creatinine Ratio 15.4 (6-22); Bilirubin Total 0.6 mg/dL (0.2-1.3); Blood Urea Nitrogen 14 mg/dL (7-17); Calcium 9.9 mg/dL (8.4-10.2); Carbon Dioxide 27 mmol/L (22-32); Chloride 101 mmol/L (98-107); Estimated Glomerular Filt Rate > 60 mL/min (>60); Globulin 2.9 g/dL (1.7-4.1); Glucose 100 mg/dL (80-110); HEMOLYSIS < 15 (0-50); Potassium 4.6 mmol/L (3.4-5.1); Sodium 137 mmol/L (137-145); Total Protein 7.5 g/dL (6.3-8.2)
[2024-03-18 13:07] LABS: Percent Iron Saturation 25 % (15-50); Total Iron Binding Capacity 359 ug/dL (265-497); Transferrin 293 mg/dL (206-381)
[2024-03-18 13:46] LABS: Vitamin B12 295 pg/mL (239-931)
== END ==
PROVIDERS: PCP Family Medicine; Referring Provider Family Medicine; Visit Provider Family Medicine
DX: E11.9 Type 2 diabetes mellitus without complications (principal); I10 Essential (primary) hypertension; E03.9 Hypothyroidism, unspecified; C79.51 Secondary malignant neoplasm of bone; C50.919 Malignant neoplasm of unspecified site of unspecified female breast; D48.5 Neoplasm of uncertain behavior of skin
CPT/HCPCS: 36415; 80053; 82607; 83036; 83540; 83550; 85025

== ENCOUNTER → 2024-09-02 07:02 | Outpatient (CLI) | payer MEDICARE, SELFPAY ==
[2024-09-02 08:20] LABS: Alanine Aminotransferase 19 IU/L (<35); Albumin 4.2 g/dL (3.5-5.0); Albumin Globulin Ratio 1.5 (1.0-2.8); Alkaline Phosphatase 85 U/L (38-126); Aspartate Aminotransferase 22 IU/L (14-36); BUN Creatinine Ratio 17.4 (6-22); Bilirubin Total 0.7 mg/dL (0.2-1.3); Blood Urea Nitrogen 16 mg/dL (7-17); Calcium 9.6 mg/dL (8.4-10.2); Carbon Dioxide 23 mmol/L (22-32); Chloride 104 mmol/L (98-107); Estimated Glomerular Filt Rate > 60 mL/min (>60); Globulin 2.8 g/dL (1.7-4.1); Glucose 125 mg/dL (80-110); HEMOLYSIS < 15 (0-50); Potassium 4.6 mmol/L (3.4-5.1); Sodium 137 mmol/L (137-145)
[2024-09-02 08:21] LABS: Hemoglobin A1C% w Est Avg Glu 5.3 % (4.0-6.0)
[2024-09-02 08:35] LABS: Free T4, Direct Thyroxine 1.57 ng/dL (0.78-2.19)
[2024-09-02 08:49] LABS: Thyroid Stimulating Hormone 1.06 uIU/mL (0.47-4.68)
[2024-09-02 09:34] LABS: Creatinine Urine Random 140.98 mg/dL
[2024-09-02 09:38] LABS: Microalbumin Urine Random 0.7 mg/dL (0-1.6)
== END ==
PROVIDERS: PCP Family Medicine; Referring Provider Family Medicine; Visit Provider Family Medicine
DX: E11.9 Type 2 diabetes mellitus without complications (principal); I10 Essential (primary) hypertension; E03.9 Hypothyroidism, unspecified
CPT/HCPCS: 36415; 80053; 82043; 82570; 83036; 84439; 84443